=== PATIENT | male | born 1995 | race African-American/Black ===

== ENCOUNTER 2017-10-10 11:23 | Emergency (ER) | payer SELFPAY ==
[2017-10-10 12:34] LABS: BILIRUBIN,URINE SMALL (NEG); CLARITY,URINE CLEAR; COLOR,URINE AMBER; GLUCOSE,URINE NEGATIVE (NEG); NITRITE,URINE NEGATIVE (NEG); PROTEIN,URINE NEGATIVE (NEG-TRACE)
[2017-10-10] MEDS: cefTRIAXone IM 250 MG VIAL IM ×2 (12:59)
[2017-10-10] MEDS: AZITHROMYCIN 250 MG TABLET. PO ×2 (12:59)
[2017-10-10 13:01] LABS: BACTERIA,URINE 0 /HPF (0-FEW)
[2017-10-10] MEDS: metroNIDAZOLE 500 MG TABLET PO ×4 (13:30→14:06)
== END 2017-10-10 14:09 | disposition home or self-care (01) ==
LOC: ER 11:23
DX: A64 Unspecified sexually transmitted disease (principal)
CPT/HCPCS: 81001; 87491; 87591; 96372; 99284; J0696; Q0144